=== PATIENT | female | born 1955 | race Caucasian/White ===

== ENCOUNTER → 2023-01-15 09:39 | Outpatient (BNVA) | payer MEDICARE, OTHER, SELFPAY | PROVIDERS: PCP Family Medicine; Visit Provider Family Medicine | DX: Z00.00 Encounter for general adult medical examination without abnormal findings (principal); R79.89 Other specified abnormal findings of blood chemistry | CPT/HCPCS: 80053; 80061; 85025 ==

== ENCOUNTER 2024-06-21 13:21 | Outpatient (CLI) | payer MEDICARE, OTHER, SELFPAY ==
--- NOTE | 2024-06-21 13:35 | XR_ITS ---
WS: [id number] SCREENING DEXA SCAN [facility] CLINICAL INFORMATION: ASYMPTOMATIC MENOPAUSAL STATE COMPARISON: None. FINDINGS: The L1-L4 bone mineral density measures 0.847 g/cm2. This corresponds to a T score score of -2.8 and Z score of -1.1. Left femoral neck bone mineral density measures 0.614 g/cm2. This corresponds to a T score of -3.1 an d Z score of -1.7. Right femoral neck bone mineral density measures 0.623 g/cm2. This corresponds to a T score -3.1of an d Z score of -1.6. Mean femoral neck bone mineral density measures 0.619 g/cm2. This corresponds to a T score of -3.1 an d Z score of -1.7. XR/XR DEXA axial skeleton* 12108 IMPRESSION: Osteoporosis lumbar spine. Osteoporosis femoral necks. Patient's FRAX calculated 10 year probability for major osteoporotic fracture i s 36.1 % and osteoporotic hip fracture is 16.7%.
== END 2024-06-21 13:22 | disposition home or self-care (01) ==
LOC: RAD 13:24
PROVIDERS: PCP Nurse Practitioner Family; Visit Provider Nurse Practitioner Family
DX: Z78.0 Asymptomatic menopausal state (principal); M81.0 Age-related osteoporosis without current pathological fracture
CPT/HCPCS: 77080

== ENCOUNTER → 2024-09-22 08:13 | Outpatient (BNVA) | payer MEDICARE, OTHER, SELFPAY | PROVIDERS: PCP Nurse Practitioner Family; Referring Provider Nurse Practitioner Family; Visit Provider Surgery | DX: R13.10 Dysphagia, unspecified (principal) | CPT/HCPCS: 99204 ==

== ENCOUNTER 2024-10-07 09:16 | Day surgery (SDC) | payer MEDICARE, OTHER, SELFPAY ==
[2024-10-07 09:27] VITALS: BP 125/74; PULSE 65; RESP 18; TEMP 36.4; O2SAT 98
--- NOTE | 2024-10-07 09:50 | P.HPUD_ITS ---
Surgery/Procedure H&P Update DATE OF PROCEDURE: October 07, 2024 DATE H&P PERFORMED: 09/22/24 H&P UPDATE INFORMATION: I have reviewed H&P completed within last 30 days, I have examined patient prior to procedure, No changes to prior documentation and H&P is in [facility] EMR on date indicated PLANNED PROCEDURE: Operation Date: 10/07/24 10:35 Proposed Procedures p EGD Dilation W/ Balloon [id number], R13.10(Not Applicable) - Rex Williamson MD
--- NOTE | 2024-10-07 10:02 | ANES.PREANE2 ---
Pre-Anesthetic Assessment Height/Weight: Height 1.63 m Weight 64.864 kg Temp Pulse Resp BP Pulse Ox O2 Del Method 97.6 F 65 18 125/74 98 Room Air 10/07/24 09:27 10/07/24 09:27 10/07/24 09:27 10/07/24 09:27 10/07/24 09:27 10/07/24 09:27 Preop Diagnosis: Dysphagia Operation Date: 10/07/24 10:35 Proposed Procedures p EGD Dilation W/ Balloon [id number], R13.10(Not Applicable) - Rex Williamson MD Was Beta Regulo taken within 24 hours: N/A Was Clonidine taken within 24 hours: N/A Last intake: Intake Last Liquid Date 10/06/24 Last Liquid Time 23:00 Last Solid Date 10/06/24 Last Solid Time 20:30 Social Alcohol and No tobacco Exam alert, oriented x 3, clear to auscultation bilaterally and regular rate & rhythm Airway Submandibular: within normal limits Cervical ROM: within normal limits Mallampati: Class II Dentition: full History/ROS No significant history except as noted and No significant complaints Pulmonary None reported CV/HEM None reported None reported Hepatic None reported GI Dysphagia Metabolic None reported Musc/skel None reported Neuropsych None reported Anesthetic Plan ASA status: 1 Anesthesia: MAC Risk of > 500 ml blood loss (7ml/kg in children): No Medications/Allergies Home Medications Medication Instructions Recorded Confirmed Last Taken Type clotrimazole-betamethasone 1 1 applic topical BID dermatosis 2 02/18/23 10/05/24 Unknown Rx %-0.05 % lotion weeks #30 mL Allergies Allergy/AdvReac Type Severity Reaction Status Date / Time No Known Allergies Allergy Unverified 09/23/24 13:37 [facility] Anesthesia Family History (Updated 09/22/24 @ 08:22 by CAITY Orantes) Mother Heart attack Social History (Updated 09/22/24 @ 08:22 by CAITY Orantes) Smoking and tobacco/nicotine status: never used tobacco/nicotine Alcohol intake: never Data Anesthesia Cardiac Studies: No Data to Display
[2024-10-07 10:49] VITALS: BP 93/67; PULSE 68; RESP 18; TEMP 36.6; O2SAT 97
[2024-10-07 10:54] VITALS: BP 107/71; PULSE 74; RESP 18; O2SAT 96
[2024-10-07 11:04] VITALS: BP 98/65; PULSE 68; RESP 18; O2SAT 95
--- NOTE | 2024-10-07 11:38 | ANE.PACU2 ---
Inpatient post-anesthesia follow up: Airway intact: Yes Vital signs: Temperature 97.8 F Pulse Rate 68 Respiratory Rate 18 Blood Pressure 98/65 Pulse Oximetry 95 Oxygen Delivery Me thod Room Air Oxygen Flow Rate 2 Fraction of Inspir ed Oxygen Hydration adequate: Yes Nausea and vomiting: No Pain level: 1 Mental status: Baseline
== END 2024-10-07 11:38 | disposition home or self-care (01) ==
PROVIDERS: PCP Nurse Practitioner Family; Visit Provider Surgery
DX: R13.10 Dysphagia, unspecified (principal); K21.00 Gastro-esophageal reflux disease with esophagitis, without bleeding; K44.9 Diaphragmatic hernia without obstruction or gangrene
CPT/HCPCS: 43239; 43249; 88305; J2704

== ENCOUNTER 2024-10-19 09:36 | Outpatient (CLI) | payer MEDICARE, OTHER, SELFPAY ==
--- NOTE | 2024-10-19 10:00 | FL_ITS ---
WS: [id number] Modified barium swallow, 10/19/2024 Clinical Data: History of hiatal hernia, difficulty swallowing. Comparison: None. Fluoroscopy time: 1min [id number] # of spot films: 1 Findings: The patient swallowed normally there was no oral delay. There is a minimal oral residue. The material passed into the hypopharynx and there is no aspiration or penetration. There is no significant resid ue. The barium tablet passed normally from the oropharynx into the hypopharynx through the esophagus and into the stomach without hesitation. FL/FL barium swallow modifd [id number] Impression: Normal modified barium swallow.
== END 2024-10-19 09:37 | disposition home or self-care (01) ==
PROVIDERS: PCP Nurse Practitioner Family; Visit Provider Surgery
DX: R13.10 Dysphagia, unspecified (principal)
CPT/HCPCS: 74230; 92611

== ENCOUNTER → 2024-10-20 11:34 | Outpatient (BNVA) | payer MEDICARE, OTHER, SELFPAY | PROVIDERS: PCP Nurse Practitioner Family; Visit Provider Surgery | DX: Z09 Encounter for follow-up examination after completed treatment for conditions other than malignant neoplasm (principal) | CPT/HCPCS: 99212 ==